=== PATIENT | female | born 1935 | race Caucasian/White ===

== ENCOUNTER 2017-05-10 10:37 | Emergency (ER) | payer BC, MEDICARE ==
[~2017-05-10] VITALS: Ht 167.6 cm; Wt 73.5 kg
[~2017-05-10 10:37] MED LIST: ALEN70TA3 PO; ASPI-482 PO; CALC600T4 PO; FISH1CAP PO; HYDR12.53 PO; LEVO100T5 PO; LOSA1TAB18 PO; LOVA40TA2 PO; METO100T11 PO; MULT-208 PO; SULF1TAB24 PO
[2017-05-10 11:06] VITALS: BP 176/77
--- NOTE | 2017-05-10 12:18 | RAD ---
CT of the head without contrast, 05/20/2017: History: Fall, head injury Comparison is made to a study from 03/19/2005. The ventricles are within normal limits in size for the patient's age. There is no shift of the midline structures. There is no evidence of acute intracranial hemorrhage or mass effect. There is minimal mucosal thickening or fluid in the right maxillary sinus. IMPRESSION: No acute intracranial abnormality is detected. PQRS Compliance Statement: One or more of the following individualized dose reduction techniques were utilized for this examination: 1. Automated exposure control 2. Adjustment of the mA and/or kV according to patient size 3. Use of iterative reconstruction technique
--- NOTE | 2017-05-10 12:20 | RAD ---
Left wrist, 3 views, 05/10/2017: History: Fall, injury, pain The bony structures are demineralized. There is an impacted fracture of the distal left radius. There is mild dorsal angulation of the major distal fracture fragments. The fracture is slightly comminuted. A fracture line appears to involve its articular surface. A small ulnar styloid fracture is also noted. No carpal bone fracture or dislocation is evident. IMPRESSION: Colles' type fracture of the left wrist.
[2017-05-10] MEDS ORDERED: HYDR-971 PO (12:53)
--- NOTE | 2017-05-10 12:53 | PHYS DOC ---
Past Medical History Past Medical History: Cancer, Hypertension, Hypothyroid Past Surgical History: Coronary Bypass Surgery, Tonsillectomy Additional Past Surgical Histo: THROID REMOVAL, LUMPECTOMY/LYMPH NODES RIGHT SIDE REMOVAL , BREAST BX, Alcohol Use: None Drug Use: None Adult General Chief Complaint Chief Complaint: MECHANICAL FALL HPI HPI Patient is a 82 year old female who presents with complaint of left wrist pain after suffering a fall prior to arrival. Patient states that she is walking on a sidewalk and tripped, falling onto her left hand. Patient also states that she bumped the left side of her head as a result of the fall. Patient states that she felt woozy but did not lose consciousness. Patient states that she is having 8 out of 10 pain in her left wrist. Patient also has mild discomfort along her left chest wall which she states is likely due to the fall. Patient denies any difficulty with breathing. Patient is on daily aspirin denies being on any other blood thinners. Patient has not taken any medications to help with her symptoms at this time. Patient states that her pain worsens with attempts to move it the rest. Review of Systems Review of Systems Constitutional: Denies fever or chills [] Eyes: Denies change in visual acuity, redness, or eye pain [] HENT: Denies nasal congestion or sore throat [] Respiratory: Denies cough or shortness of breath [] Cardiovascular: Denies chest pain or edema [] GI: Denies abdominal pain, nausea, vomiting, bloody stools or diarrhea [] : Denies dysuria or hematuria [] Musculoskeletal: Left wrist pain [] Integument: Denies rash or skin lesions [] Neurologic: Head injury, denies focal weakness or sensory changes [] Allergies Allergies Allergies Coded Allergies Type Severity Reaction Last Updated Verified No Known Drug Allergies 09/19/15 No Physical Exam Physical Exam Constitutional: Alert, afebrile, no acute distress. [] HENT: Normocephalic, atraumatic, bilateral external ears normal, oropharynx moist, no oral exudates, nose normal. [] Eyes: PERRLA, EOMI, conjunctiva normal, no discharge. [] Neck: Normal range of motion, no tenderness, supple, no stridor. [] Cardiovascular:Heart rate regular rhythm, no murmur [] Lungs & Thorax: Bilateral breath sounds clear to auscultation [] Abdomen: Bowel sounds normal, soft, no tenderness, no masses, no pulsatile masses. [] Skin: Warm, dry, no erythema, no rash. [] Back: No tenderness, no CVA tenderness. [] Extremities: Moderate soft tissue swelling with mild deformity to left wrist, tenderness palpation over dorsum distal radius and ulna bones, range of motion not tested secondary to pain, capillary refill less than 2 seconds in all 5 digits of left hand. [] Neurologic: Alert and oriented X 3, normal motor function, normal sensory function, no focal deficits noted. [] Current Patient Data Vital Signs Vital Signs Date Time Temp Pulse Resp B/P (MAP) Pulse Ox O2 Delivery O2 Flow Rate FiO2 05/10/17 11:06 98.2 72 18 176/77 (110) 96 Room Air 98.2 EKG EKG Not performed [] Radiology/Procedures Radiology/Procedures [address] [address] IMAGING REPORT Signed PATIENT: TARIK COLEMAN ACCOUNT: [id number] : 1935 LOCATION: ER AGE: 82 SEX: F EXAM STATUS: REG ER ORD. PHYSICIAN: ARUNA CONTRERAS MD REASON: fall, left wrist pain PROCEDURE: WRIST 3V LEFT Left wrist, 3 views, 05/10/2017: History: Fall, injury, pain The bony structures are demineralized. There is an impacted fracture of the distal left radius. There is mild dorsal angulation of the major distal fracture fragments. The fracture is slightly comminuted. A fracture line appears to involve its articular surface. A small ulnar styloid fracture is also noted. No carpal bone fracture or dislocation is evident. IMPRESSION: Colles' type fracture of the left wrist. DICTATED and SIGNED BY: FREDY BUITRAGO MD DATE: 05/10/17 1216 CC: ARUNA CONTRERAS MD; NESTOR CARCAMO MD ~ [place] [id number] [place] [address] IMAGING REPORT Signed PATIENT: TARIK COLEMAN ACCOUNT: [id number] : 1935 LOCATION: ER AGE: 82 SEX: F EXAM STATUS: REG ER ORD. PHYSICIAN: ARUNA CONTRERAS MD REASON: fall, head injury PROCEDURE: CT HEAD WO CONTRAST CT of the head without contrast, 05/20/2017: History: Fall, head injury Comparison is made to a study from 03/19/2005. The ventricles are within normal limits in size for the patient's age. There is no shift of the midline structures. There is no evidence of acute intracranial hemorrhage or mass effect. There is minimal mucosal thickening or fluid in the right maxillary sinus. IMPRESSION: No acute intracranial abnormality is detected. PQRS Compliance Statement: One or more of the following individualized dose reduction techniques were utilized for this examination: 1. Automated exposure control 2. Adjustment of the mA and/or kV according to patient size 3. Use of iterative reconstruction technique DICTATED and SIGNED BY: FREDY BUITRAGO MD DATE: 05/10/173 CC: ARUNA CONTRERAS MD; NESTOR CARCAMO MD ~ [] Course & Med Decision Making Course & Med Decision Making Pertinent Labs and Imaging studies reviewed. (See chart for details) The patient was offered pain medication in the emergency department but declined. Patient's x-rays are consistent with Colles' type fracture. The patient's fracture was splinted with a sugar tong splint by the emergency department geophysical data technician. My evaluation post splint application showed normal capillary refill in all 5 digits and normal sensation. Patient's head CT negative for acute intracranial injury. Patient will be referred to Dr. Borrego for follow-up in 5-7 days for reevaluation of her left wrist fracture. Advised return emergency department for any worsening symptoms. Patient voiced understanding and in agreement with treatment plan. Dragon Disclaimer Dragon Disclaimer This electronic medical record was generated, in whole or in part, using a voice recognition dictation system. Departure Departure Impression: Primary Impression: Colles' fracture Additional Impression: Closed head injury Disposition: 01 HOME, SELF-CARE Condition: IMPROVED Referrals: NESTOR CARCAMO MD (PCP) RODOLFO BORREGO MD Patient Instructions: Colles Fracture, Head Injury, Adult Additional Instructions: Follow-up with Dr. Borrego in the next 5-7 days. Return to the emergency department for any worsening symptoms. Scripts Hydrocodone/Apap 5-325 (NORCO 5-325 TABLET) 1 Each Tablet 1-2 TAB PO Q4-6HRS Y for PAIN, #30 TAB Prov: ARUNA CONTRERAS MD 05/10/17 Problem Qualifiers Primary Impression: Colles' fracture Encounter type: initial encounter Fracture type: closed Laterality: left Qualified Codes: S52.532A - Colles' fracture of left radius, initial encounter for closed fracture Additional Impression: Closed head injury Encounter type: initial encounter Qualified Codes: S09.90XA - Unspecified injury of head, initial encounter ARUNA CONTRERAS MD May 10, 2017 12:53
== END 2017-05-10 13:22 | disposition home or self-care (01) ==
LOC: ER 10:37
DX: S52.532A Colles' fracture of left radius, initial encounter for closed fracture (principal); S09.90XA Unspecified injury of head, initial encounter; E03.9 Hypothyroidism, unspecified; I10 Essential (primary) hypertension; E89.0 Postprocedural hypothyroidism; Z95.1 Presence of aortocoronary bypass graft; Z90.89 Acquired absence of other organs; W01.0XXA Fall on same level from slipping, tripping and stumbling without subsequent striking against object, initial encounter; Y93.01 Activity, walking, marching and hiking; Y99.8 Other external cause status; Y92.89 Other specified places as the place of occurrence of the external cause
CPT/HCPCS: 29125; 70450; 73110; 99284-25

== ENCOUNTER 2019-01-04 09:27 | Emergency (ER) | payer BC ==
[~2019-01-04] VITALS: Ht 165.1 cm; Wt 70.3 kg
[~2019-01-04 09:27] MED LIST changes: +AMLO5TAB10 PO; +CALC-77 PO; +CHOL500021 PO; +CIPR250T30 PO; +HYDR-3164 PO; -HYDR12.53 PO; +HYDR12.575 PO; +LEVO88TA4 PO; -LOSA1TAB18 PO; +LOSA1TAB22 PO; +LOSA1TAB25 PO; +METO-247 PO; -METO100T11 PO
--- NOTE | 2019-01-04 09:54 | EKG ---
[facility] [address] [place] [address] Test Date: 2019-01-04 Test Time: 09:36:54 Pat Name: TARIK COLEMAN Department: Room: Gender: F Media Aid: : 1935 Requested By: JENNY TELLEZ Order Number: [id number] Reading MD: Wei Gambino MD Measurements Intervals [place] Rate: 75 P: -10 WV: 220 QRS: -18 QRSD: 112 T: 31 QT: 398 QTc: 452 Interpretive Statements SINUS RHYTHM PROLONGED WV INTERVAL Electronically Signed On 01-05-2019 10:17:30 [employer] by Wei Gambino MD
[2019-01-04 10:16] LABS: BASO # 0.1 x10^3/uL (0.0-0.2); BASO % 1 % (0-3); EOS # 0.3 x10^3/uL (0.0-0.7); EOS % 3 % (0-3); HEMATOCRIT 40.1 % (36.0-47.0); HEMOGLOBIN 13.2 g/dL (12.0-15.5); LYMPH # 1.4 x10^3/uL (1.0-4.8); LYMPH % 12 % (24-48); MEAN CORPUSCULAR HEMOGLOBIN 30 pg (25-35); MEAN CORPUSCULAR HGB CONC 33 g/dL (31-37); MEAN CORPUSCULAR VOLUME 92 fL (79-100); MONO # 0.7 x10^3/uL (0.0-1.1); MONO % 7 % (0-9); NEUT # 8.7 x10^3uL (1.8-7.7); NEUT % 78 % (31-73); PLATELET COUNT 214 x10^3/uL (140-400); RED BLOOD COUNT 4.38 x10^6/uL (3.50-5.40); RED CELL DISTRIBUTION WIDTH 13.4 % (11.5-14.5); WHITE BLOOD COUNT 11.1 x10^3/uL (4.0-11.0)
--- NOTE | 2019-01-04 10:17 | PHYS DOC ---
Past Medical History Past Medical History: Heart Disease Additional Past Medical Histor: HIGH CHOLESTEROL Past Surgical History: Cancer Surgery, Coronary Bypass Surgery Additional Past Surgical Histo: RT BREAST LUMPECTOMY, THYROID REMOVED Additional Information: nonsmoker Alcohol Use: None Drug Use: None Adult General Chief Complaint Chief Complaint: Palpitations HPI HPI Patient is an 83 YO F that is presenting with heart palpitations that began on . She was being treated for a UTI with Bactrim when she developed nausea and vomiting. She stopped the Bactrim and switched to nitrofurantoin, she doesn't have any of the urinary symptoms anymore. She reports nausea, vomiting, mild dizziness, and overall lethargy. She denies abdominal pain, chest pain, fever, chills, and trauma. She reports that the palpitations are episodic and improve with rest. She has a past medical history of hypertension, hypercholesterolemia, and she has had a CABG. She reports that she has not had any of these episodes since her CABG. Review of Systems Review of Systems Constitutional: Denies fever or chills [] Eyes: Denies change in visual acuity, redness, or eye pain [] HENT: Denies nasal congestion or sore throat [] Respiratory: Reports cough, denies shortness of breath [] Cardiovascular: Reports palpitations, denies chest pain [] GI: Denies abdominal pain, nausea, vomiting, or diarrhea [] : Denies dysuria or hematuria [] Integument: Denies rash or skin lesions [] Neurologic: Denies headache, focal weakness or sensory changes [] Complete systems were reviewed and found to be within normal limits, except as documented in this note. Current Medications Current Medications Current Medications Medications (Trade) Dose Ordered Sig/John Start Time Stop Time Status Last Admin Dose Admin Iohexol (Omnipaque 350 Mg/ml) 75 ml 1X ONCE 01/04/19 11:45 01/04/19 11:47 DC Ondansetron HCl (Zofran) 4 mg 1X ONCE 01/04/19 10:30 01/04/19 10:31 DC 01/04/19 11:23 4 MG Sodium Chloride 1,000 ml @ 1,000 mls/hr 1X ONCE 01/04/19 11:30 01/04/19 12:29 DC Allergies Allergies Allergies Coded Allergies Type Severity Reaction Last Updated Verified No Known Drug Allergies 09/19/15 No Physical Exam Physical Exam Constitutional: Well developed, well nourished, no acute distress, non-toxic appearance. [] HENT: Normocephalic, atraumatic, nose normal. [] Eyes: Conjunctiva normal, no discharge. [] Neck: Normal range of motion, no tenderness, supple, no stridor. [] Cardiovascular: Heart rate regular rhythm, no murmur [] Lungs & Thorax: Bilateral breath sounds clear to auscultation [] Abdomen: Soft, no tenderness. [] Skin: Warm, dry, no erythema, no rash. [] Extremities: No tenderness, 1+ BL LE pitting edema. [] Neurologic: Alert and oriented X 3, no focal deficits noted. [] Psychologic: Affect normal, judgement normal, mood normal. [] Current Patient Data Vital Signs Vital Signs Date Time Temp Pulse Resp B/P (MAP) Pulse Ox O2 Delivery O2 Flow Rate FiO2 01/04/19 11:15 66 18 141/63 (89) 96 Room Air 01/04/19 09:38 98.3 98.3 Lab Values Laboratory Tests Test 01/04/19 09:55 01/04/19 10:49 White Blood Count 11.1 x10^3/uL (4.0-11.0) H Red Blood Count 4.38 x10^6/uL (3.50-5.40) Hemoglobin 13.2 g/dL (12.0-15.5) Hematocrit 40.1 % (36.0-47.0) Mean Corpuscular Volume 92 fL (79-100) Mean Corpuscular Hemoglobin 30 pg (25-35) Mean Corpuscular Hemoglobin Concent 33 g/dL (31-37) Red Cell Distribution Width 13.4 % (11.5-14.5) Platelet Count 214 x10^3/uL (140-400) Neutrophils (%) (Auto) 78 % (31-73) H Lymphocytes (%) (Auto) 12 % (24-48) L Monocytes (%) (Auto) 7 % (0-9) Eosinophils (%) (Auto) 3 % (0-3) Basophils (%) (Auto) 1 % (0-3) Neutrophils # (Auto) 8.7 x10^3uL (1.8-7.7) H Lymphocytes # (Auto) 1.4 x10^3/uL (1.0-4.8) Monocytes # (Auto) 0.7 x10^3/uL (0.0-1.1) Eosinophils # (Auto) 0.3 x10^3/uL (0.0-0.7) Basophils # (Auto) 0.1 x10^3/uL (0.0-0.2) D-Dimer (Katarina) 0.73 ug/mlFEU (0.00-0.50) H Sodium Level 139 mmol/L (136-145) Potassium Level 4.0 mmol/L (3.5-5.1) Chloride Level 100 mmol/L (98-107) Carbon Dioxide Level 26 mmol/L (21-32) Anion Gap 13 (6-14) Blood Urea Nitrogen 22 mg/dL (7-20) H Creatinine 1.3 mg/dL (0.6-1.0) H Estimated GFR (Cockcroft-Gault) 38.9 BUN/Creatinine Ratio 17 (6-20) Glucose Level 152 mg/dL (70-99) H Calcium Level 9.1 mg/dL (8.5-10.1) Magnesium Level 2.2 mg/dL (1.8-2.4) Total Bilirubin 0.7 mg/dL (0.2-1.0) Aspartate Amino Transferase (AST) 23 U/L (15-37) Alanine Aminotransferase (ALT) 32 U/L (14-59) Alkaline Phosphatase 49 U/L (46-116) Creatine Kinase 117 U/L (26-192) Creatine Kinase MB (Mass) 1.6 ng/mL (0.0-3.6) Creatine Kinase MB Relative Index 1.4 % (0-4) Troponin I Quantitative < 0.017 ng/mL (0.000-0.055) UU-Kqv-U-Type Natriuretic Peptide 278 pg/mL (0-449) Total Protein 7.5 g/dL (6.4-8.2) Albumin 4.2 g/dL (3.4-5.0) Albumin/Globulin Ratio 1.3 (1.0-1.7) Lipase 125 U/L (73-393) Thyroid Stimulating Hormone (TSH) 1.941 uIU/mL (0.358-3.74) Free Thyroxine 1.31 ng/dL (0.76-1.46) Free Triiodothyronine (T3) pg/mL 1.60 pg/mL (2.18-3.98) L Urine Collection Type Unknown Urine Color Yellow Urine Clarity Clear Urine pH 6.0 Urine Specific [place] 1.015 Urine Protein Negative mg/dL (NEG-TRACE) Urine Glucose (UA) Negative mg/dL (NEG) Urine Ketones (Stick) Negative mg/dL (NEG) Urine Blood Negative (NEG) Urine Nitrite Negative (NEG) Urine Bilirubin Negative (NEG) Urine Urobilinogen Dipstick 0.2 mg/dL (0.2 mg/dL) Urine Leukocyte Esterase Negative (NEG) Urine RBC 1-2 /HPF (0-2) Urine WBC Occ /HPF (0-4) Urine Squamous Epithelial Cells Occ /LPF Urine Bacteria 0 /HPF (0-FEW) Urine Mucus Slight /LPF Laboratory Tests 01/04/19 09:55 Laboratory Tests 01/04/19 09:55 EKG EKG @0936 Sinus rhythm at 76 BPM, prolonged WV interval at 220ms, left axis deviation, no ST elevation Radiology/Procedures Radiology/Procedures PROCEDURE: CT ABD PELV W/ IV CONTRST ONLY PQRS Compliance Statement: One or more of the following individualized dose reduction techniques were utilized for this examination: 1. Automated exposure control 2. Adjustment of the mA and/or kV according to patient size 3. Use of iterative reconstruction technique CT angiography chest with contrast 01/04/2019 12:[address] Abdomen Pelvis with contrast INDICATION: Chest pain, nausea and vomiting. Elevated d-dimer. COMPARISON: None available TECHNIQUE: Axial CT images of the chest, abdomen and pelvis were obtained after the intravenous administration of 75 mL Omnipaque 350. Coronal and sagittal reformats are provided. Maximum intensity projection images of the thoracic vasculature are provided. FINDINGS: CHEST: The thyroid gland is normal in appearance. There are no pathologically enlarged axillary, mediastinal or hilar lymph nodes. The heart size is enlarged. Thoracic aorta is normal in course and caliber. Median sternotomy changes are present. Mitral annular calcifications are present. Three-vessel coronary artery vascular calcifications are present. There is adequate opacification of the pulmonary arterial system. There there are no filling defects within the pulmonary arterial system to suggest acute or chronic pulmonary embolus. Diffuse subpleural interstitial changes are present. There is traction bronchiectasis involving the right middle lobe. No suspicious solid noncalcified pulmonary nodules are identified. There are no pleural effusions. No pulmonary vascular congestion or pneumothorax. Abdomen/pelvis: Hypoattenuating hepatic lesions measuring up to 4.6 cm most favors simple cysts or hemangiomas. Calcific examination within the spleen likely represent sequela prior granulomatous exposure. Subcentimeter hypodensity in the spleen measures 3 mm and favors benign etiology such as a hemangioma, lymphangioma or epithelial cyst. There is a fluid attenuation lesion in the tail the pancreas measuring 8 mm to represent a simple cyst. Mild pancreatic atrophy is identified. Adrenal glands are normal in appearance. Chest gallstones are identified at the gallbladder. Abdominal aorta is normal in course and caliber. Dense calcified atheromatous plaque is identified at the origin of the celiac axis resulting in severe stenosis and poststenotic dilatation measuring up to 8 mm. There is calcified atheromatous plaque at the origin of the superior mesenteric artery resulting in at least mild stenosis. There are no pathologically enlarged lymph nodes in abdomen and pelvis. There is no free fluid or free intraperitoneal air. The kidneys enhance symmetrically. There is no suspicious renal mass. There is no hydronephrosis. There are no suspected calculi within the kidneys, ureters or urinary bladder. There is moderate diverticulosis. No definite inflammatory changes are identified. Normal appendix is visualized. No evidence for bowel obstruction or inflammation. Urinary bladder is within normal limits given degree of distention. Uterus is normal in appearance. There is a cystic right adnexal mass measuring 4.7 x 3.6 cm. There is grade 1 anterolisthesis of L5 on S1. There is lumbarization of the first sacral segment. IMPRESSION: 1. No evidence for acute pulmonary embolus. Chronic interstitial changes are identified, most prominent right middle lobe associated traction bronchiectasis. Consideration may be given for early interstitial lung disease which does not conform to a specific pattern. 2. Mild cardiomegaly with mitral annular calcifications. CABG changes are visualized. 3. Simple hepatic cysts. 3 mm hypodensity within the spleen favors benign etiology. 4. 8 mm cyst in the tail the pancreas may represent an epithelial cyst versus side branch 5:00 PM). One year follow-up MRCP may be of benefit. 5. Moderate diverticulosis. No adjacent inflammatory changes are present. 6. Cholelithiasis. Electronically signed by: Kary Kirby MD (01/04/2019 12:55 PM) [facility] Course & Med Decision Making Course & Med Decision Making Pertinent Labs and Imaging studies reviewed. (See chart for details) Patient is an 83 YO F that is presenting with heart palpitations, nausea, and vomiting for a couple days. Labs obtained and posted to chart. WC of 11.1, Cr of 1.3. Initial troponin WNL. EKG WNL, no ST elevation. D-dimer elevated. CT angio chest and CT abdomen/pelvis shows no evidence for acute pulmonary embolus , simple hepatic cysts, and 8 mm cyst in the tail the pancreas. UA clear. Discussed the findings of the CT with the patient and recommended follow-up with PCP to address the cysts in the liver, spleen, and pancreas. Nausea addressed. Dragon Disclaimer Dragon Disclaimer This electronic medical record was generated, in whole or in part, using a voice recognition dictation system. Departure Departure Impression: Primary Impression: Palpitations Additional Impression: Abnormal finding on radiology exam Disposition: HOME, SELF-CARE Condition: STABLE Referrals: Rebecca CARCAMO MD (PCP) Patient Instructions: Incidental Abdominal Radiological Finding, Palpitations, Mmir-jf-True Scripts Ondansetron (ONDANSETRON ODT) 4 Mg Tab.rapdis 1 TAB PO PRN Q6-8HRS for VOMITING, #16 TAB Prov: GUI CAREY DO 01/04/19 Problem Qualifiers GUI CAREY DO Jan 04, 2019 10:17
[2019-01-04 10:18] LABS: CALCIUM 9.1 mg/dL (8.5-10.1); CREATININE 1.3 mg/dL (0.6-1.0); GFR 38.9
[2019-01-04 10:23] LABS: ALBUMIN 4.2 g/dL (3.4-5.0); ALBUMIN/GLOBULIN RATIO 1.3 (1.0-1.7); MAGNESIUM 2.2 mg/dL (1.8-2.4); TOTAL BILIRUBIN 0.7 mg/dL (0.2-1.0); TOTAL PROTEIN 7.5 g/dL (6.4-8.2)
[2019-01-04] MEDS ORDERED: ONDANSETRON PF 4 MG/2 ML VIAL. IV ONE (10:30)
[2019-01-04] MEDS ORDERED: IV NORMAL SALINE 1000ML BAG 1,000 ML IV ONE ×2 (10:30→11:30)
[2019-01-04 11:04] LABS: FREE T4 1.31 ng/dL (0.76-1.46); THYROID STIM HORMONE (TSH) 1.941 uIU/mL (0.358-3.74)
[2019-01-04 11:14] LABS: BILIRUBIN,URINE NEGATIVE (NEG); CLARITY,URINE CLEAR; COLOR,URINE YELLOW; NITRITE,URINE NEGATIVE (NEG); PROTEIN,URINE NEGATIVE (NEG-TRACE); UROBILINOGEN,URINE 0.2 mg/dL (0.2 mg/dL)
[2019-01-04 11:26] LABS: BACTERIA,URINE 0 /HPF (0-FEW); SQUAMOUS EPITHELIAL CELL,UR OCC /LPF; WBC,URINE OCC /HPF (0-4)
[2019-01-04] MEDS ORDERED: IOHEXOL 350 MG/ML 100 ML VIAL. IV ONE (11:45)
--- NOTE | 2019-01-04 12:59 | RAD ---
PQRS Compliance Statement: One or more of the following individualized dose reduction techniques were utilized for this examination: 1. Automated exposure control 2. Adjustment of the mA and/or kV according to patient size 3. Use of iterative reconstruction technique CT angiography chest with contrast 01/04/2019 12:[address] Abdomen Pelvis with contrast INDICATION: Chest pain, nausea and vomiting. Elevated d-dimer. COMPARISON: None available TECHNIQUE: Axial CT images of the chest, abdomen and pelvis were obtained after the intravenous administration of 75 mL Omnipaque 350. Coronal and sagittal reformats are provided. Maximum intensity projection images of the thoracic vasculature are provided. FINDINGS: CHEST: The thyroid gland is normal in appearance. There are no pathologically enlarged axillary, mediastinal or hilar lymph nodes. The heart size is enlarged. Thoracic aorta is normal in course and caliber. Median sternotomy changes are present. Mitral annular calcifications are present. Three-vessel coronary artery vascular calcifications are present. There is adequate opacification of the pulmonary arterial system. There there are no filling defects within the pulmonary arterial system to suggest acute or chronic pulmonary embolus. Diffuse subpleural interstitial changes are present. There is traction bronchiectasis involving the right middle lobe. No suspicious solid noncalcified pulmonary nodules are identified. There are no pleural effusions. No pulmonary vascular congestion or pneumothorax. Abdomen/pelvis: Hypoattenuating hepatic lesions measuring up to 4.6 cm most favors simple cysts or hemangiomas. Calcific examination within the spleen likely represent sequela prior granulomatous exposure. Subcentimeter hypodensity in the spleen measures 3 mm and favors benign etiology such as a hemangioma, lymphangioma or epithelial cyst. There is a fluid attenuation lesion in the tail the pancreas measuring 8 mm to represent a simple cyst. Mild pancreatic atrophy is identified. Adrenal glands are normal in appearance. Chest gallstones are identified at the gallbladder. Abdominal aorta is normal in course and caliber. Dense calcified atheromatous plaque is identified at the origin of the celiac axis resulting in severe stenosis and poststenotic dilatation measuring up to 8 mm. There is calcified atheromatous plaque at the origin of the superior mesenteric artery resulting in at least mild stenosis. There are no pathologically enlarged lymph nodes in abdomen and pelvis. There is no free fluid or free intraperitoneal air. The kidneys enhance symmetrically. There is no suspicious renal mass. There is no hydronephrosis. There are no suspected calculi within the kidneys, ureters or urinary bladder. There is moderate diverticulosis. No definite inflammatory changes are identified. Normal appendix is visualized. No evidence for bowel obstruction or inflammation. Urinary bladder is within normal limits given degree of distention. Uterus is normal in appearance. There is a cystic right adnexal mass measuring 4.7 x 3.6 cm. There is grade 1 anterolisthesis of L5 on S1. There is lumbarization of the first sacral segment. IMPRESSION: 1. No evidence for acute pulmonary embolus. Chronic interstitial changes are identified, most prominent right middle lobe associated traction bronchiectasis. Consideration may be given for early interstitial lung disease which does not conform to a specific pattern. 2. Mild cardiomegaly with mitral annular calcifications. CABG changes are visualized. 3. Simple hepatic cysts. 3 mm hypodensity within the spleen favors benign etiology. 4. 8 mm cyst in the tail the pancreas may represent an epithelial cyst versus side branch 5:00 PM). One year follow-up MRCP may be of benefit. 5. Moderate diverticulosis. No adjacent inflammatory changes are present. 6. Cholelithiasis. Electronically signed by: Kary Kirby MD (01/04/2019 12:55 PM) [facility]
[2019-01-04 13:08] VITALS: BP 156/66
[2019-01-04] MEDS ORDERED: ONDA4TAB12 PO (13:30)
== END 2019-01-04 14:01 | disposition home or self-care (01) ==
LOC: ER 09:27
DX: R00.2 Palpitations (principal); R93.89 Abnormal findings on diagnostic imaging of other specified body structures; R11.2 Nausea with vomiting, unspecified; R42 Dizziness and giddiness; R53.83 Other fatigue; I11.9 Hypertensive heart disease without heart failure; E78.00 Pure hypercholesterolemia, unspecified; Z95.1 Presence of aortocoronary bypass graft
CPT/HCPCS: 36415; 71275; 74177; 80053; 81001; 82553; 83690; 83735; 83880; 84439; 84443; 84481; 84484; 85025; 85379; 93005; 96361; 96374; 99284; J2405; J7030; Q9967

== ENCOUNTER → 2020-10-14 | Outpatient (CLI) | payer BC ==
[2020-04-12 11:00] VITALS: BP 103/41
[~2020-10-14] MED LIST changes: +AMLO-186 PO; -AMLO5TAB10 PO; -CALC600T4 PO; +CALC600T6 PO; +HYDR-2761 PO; +ONDA4TAB12 PO
--- NOTE | 2020-10-14 17:47 | KCIC ---
Left foot 3 views INDICATION: Left foot pain COMPARISON: None. FINDINGS: Hallux valgus deformity and hammertoe deformity to the second digits are apparent. Bones are demineralized and there is a horizontal lucency through the proximal shaft of the second metatarsal, suspicious for nondisplaced hairline fracture. No significant calcification is seen. No acute osseous abnormalities otherwise noted. Degenerative changes at the MTP joints of the first through third digits are present. Soft tissues are unremarkable. IMPRESSION: Hairline fracture through the proximal shaft of the second metatarsal without displacement. Otherwise no acute osseous abnormalities identified on x-ray. Electronically signed by: Rachna Gutierrez MD (10/14/2020 5:44 PM) [id number]
== END ==
LOC: KCIC 11:08
PROVIDERS: ATTEND Family Medicine
DX: S92.325A Nondisplaced fracture of second metatarsal bone, left foot, initial encounter for closed fracture (principal); M19.072 Primary osteoarthritis, left ankle and foot; X58.XXXA Exposure to other specified factors, initial encounter; Y93.89 Activity, other specified; Y92.89 Other specified places as the place of occurrence of the external cause; Y99.8 Other external cause status
CPT/HCPCS: 73630

== ENCOUNTER → 2020-11-01 | Outpatient (CLI) | payer BC ==
[2020-04-12 11:00] VITALS: BP 103/41
--- NOTE | 2020-11-02 15:03 | RAD ---
DATE: 11/01/2020 8:18 AM EXAM: MAMMO JUAN SCREENING BILATERAL HISTORY: Screening COMPARISON: 10/28/2018 Bilateral CC and MLO views of the breasts were performed. Bilateral breast tomosynthesis was performed in CC and MLO projections. This study was interpreted with the benefit of Computerized Aided Detection (CAD). FINDINGS: Breast Density: SCATTERED The breast parenchyma shows scattered fibroglandular densities. Breast parenchyma level B No suspicious masses, microcalcifications or architectural distortion is present to suggest malignancy in either breast. The visualized axillae are unremarkable. IMPRESSION: No mammographic evidence of malignancy. BI-RADS CATEGORY: 1 NEGATIVE RECOMMENDED FOLLOW-UP: 12M 12 MONTH FOLLOW-UP Annual screening mammography is recommended, unless clinically indicated sooner based on symptoms or change in physical exam. PQRS compliance statement: Patient information was entered into a reminder system with a target due date for the next mammogram. Mammography is a sensitive method for finding small breast cancers, but it does not detect them all and is not a substitute for careful clinical examination. A negative mammogram does not negate a clinically suspicious finding and should not result in delay in biopsying a clinically suspicious abnormality. "Our facility is accredited by the [employer] Mammography Program."
== END ==
LOC: MAMMO 08:14
PROVIDERS: ATTEND Family Medicine
DX: Z12.31 Encounter for screening mammogram for malignant neoplasm of breast (principal)
CPT/HCPCS: 77063; 77067

== ENCOUNTER 2021-05-16 12:32 | Emergency (ER) | payer BC ==
[~2021-05-16] VITALS: Ht 160 cm; Wt 70.4 kg
[~2021-05-16 12:32] MED LIST changes: -CALC600T6 PO; +CALC600T60 PO
[2021-05-16] MEDS ORDERED: LIDOCAINE 2%/EPI 1:100,000 20 ML VIAL. INJ ONE (14:15)
[2021-05-16] MEDS ORDERED: DIPH,PERTUSS(ACELL),TET VAC/PF 0.5 ML SYRINGE. VAX IM ONE (14:15)
--- NOTE | 2021-05-16 14:18 | RAD ---
CT CERVICAL SPINE WO, CT HEAD AND MAXILLOFACIAL WO History: Reason: fall with head injury / Spl. Instructions: / History: Comparison: May 10, 2017 Technique: Noncontrast CT imaging was performed of the head, maxillofacial and cervical spine. Hess l and sagittal reconstructions were performed. Exposure: One or more of the following individualized dose reduction techniques were utilized for thi s examination: 1. Automated exposure control 2. Adjustment of the mA and/or kV according to patient size 3. Use of iterative reconstruction technique. Findings: Head CT: No intracranial hemorrhage. No mass effect. No hydrocephalus. Mild brain parenchymal volume loss. Mild foci of decreased attenuation within the hemispheric white m atter, most often due to chronic microvascular ischemia. Maxillofacial CT: No acute maxillofacial fracture. Maxillary cyst measures 1.0 x 1.0 cm. Edentulous. Orbits are unremarkable. Paranasal sinuses and mastoid air cells are clear. No acute calvarial fractu re. Cervical spine CT: Grade 1 anterolisthesis C4 on C5. Normal vertebral body height. No acute fracture. Moderate degenerative disc changes most prominent C5-C6 and C6-C7. Left. Right facet arthropathy. Lef t C2-C3 facet fusion. Soft tissues are unremarkable. Impression: Head CT: 1. No acute intracranial abnormality. Maxillofacial CT: 1. No acute maxillofacial fracture. Cervical spine CT: 1. No acute fracture or subluxation of the cervical spine. 2. Moderate multilevel cervical spondylosis. Electronically signed by: Anuj Hilton DO (05/16/2021 2:15 PM) [id number]
--- NOTE | 2021-05-16 15:23 | ED.ADGEN ---
Past Medical History Past Medical History: High Cholesterol, Heart Disease, Hypertension Additional Past Medical Histor: HIGH CHOLESTEROL Past Surgical History: Cancer Surgery, Coronary Bypass Surgery Additional Past Surgical Histo: RT BREAST LUMPECTOMY, THYROID REMOVED, heart bypass Smoking Status: Never Smoker Alcohol Use: None Drug Use: None General Adult EDM: Chief Complaint: MECHANICAL FALL HPI: HPI: Patient is a 86 year old female who presents emergency department with complaints of a laceration and swelling to her lower lip. Patient states she had gone outside to get the mail when she was coming back and she tripped and fell at approximately 0830. Patient reports that she fell her chin hit the ground, she denies any loss of consciousness, nausea, vomiting, vision changes, head/neck/back pain. She denies any chest pain, palpitations, dizziness, or syncope. Patient is unsure when her last tetanus shot was. She currently rates her pain a 3 out of 10 on the pain scale, she denies any alleviating or exacerbating factors. Review of Systems: Review of Systems: Complete ROS is negative unless otherwise noted in HPI. Current Medications: Current Medications Medications (Trade) Dose Ordered Sig/John Start Time Stop Time Status Last Admin Dose Admin Diphtheria/ Tetanus/Acell Pertussis (ADACEL TDap SYRINGE) 0.5 ml ONCE ONCE 05/16/21 14:15 05/16/21 14:16 DC 05/16/21 14:22 0.5 ML Lidocaine/ Epinephrine (LIDOCAINE 2%-EPI 1:100,000 multi-dose) 20 ml 1X ONCE 05/16/21 14:15 05/16/21 14:16 DC Allergies: Allergies: Allergies Coded Allergies Type Severity Reaction Last Updated Verified No Known Drug Allergies 09/19/15 No Physical Exam: PE: See Above Constitutional: Well developed, well nourished, no acute distress, non-toxic appearance. [] HENT: Normocephalic, bilateral external ears normal, nose normal. [] Eyes: PERRLA, EOMI, conjunctiva normal, no discharge. [] Neck: Normal range of motion, nontender, no obvious deformity, no stridor. [] Cardiovascular:Heart rate regular rhythm Lungs & Thorax: Respirations even and unlabored, no retractions, no respiratory distress Skin: Warm, dry, no erythema, no rash; 1 cm laceration along the vermilion border of the right lower lip, no visible foreign body, no active bleeding, extends through to the intraoral surface, no loose teeth [] Extremities: No cyanosis, ROM intact, no edema. [] Neurologic: Alert and oriented X 3, no focal deficits noted. [] Psychologic: Affect normal, judgement normal, mood normal. [] Current Patient Data: Vital Signs: Vital Signs Date Time Temp Pulse Resp B/P (MAP) Pulse Ox O2 Delivery O2 Flow Rate FiO2 05/16/21 16:10 76 135/76 (95) 96 Room Air 05/16/21 13:00 98.1 16 98.1 EKG: EKG: [] Heart Score: C/O Chest Pain: No Risk Scores: Score 0 - 3: 2.5% MACE over next 6 weeks - Discharge Home Score 4 - 6: 20.3% MACE over next 6 weeks - Admit for Clinical Observation Score 7 - 10: 72.7% MACE over next 6 weeks - Early Invasive Strategies Radiology/Procedures: Radiology/Procedures: PROCEDURE: CT HEAD AND MAXILLOFACIAL WO CT CERVICAL SPINE WO, CT HEAD AND MAXILLOFACIAL WO History: Reason: fall with head injury / Spl. Instructions: / History: Comparison: May 10, 2017 Technique: Noncontrast CT imaging was performed of the head, maxillofacial and cervical spine. Coronal and sagittal reconstructions were performed. Exposure: One or more of the following individualized dose reduction techniques were utilized for this examination: 1. Automated exposure control 2. Adjustment of the mA and/or kV according to patient size 3. Use of iterative reconstruction technique. Findings: Head CT: No intracranial hemorrhage. No mass effect. No hydrocephalus. Mild brain parenchymal volume loss. Mild foci of decreased attenuation within the hemispheric white matter, most often due to chronic microvascular ischemia. Maxillofacial CT: No acute maxillofacial fracture. Maxillary cyst measures 1.0 x 1.0 cm. Edentulous. Orbits are unremarkable. Paranasal sinuses and mastoid air cells are clear. No acute calvarial fracture. Cervical spine CT: Grade 1 anterolisthesis C4 on C5. Normal vertebral body height. No acute fracture. Moderate degenerative disc changes most prominent C5-C6 and C6-C7. Left. Right facet arthropathy. Left C2-C3 facet fusion. Soft tissues are unremarkable. Impression: Head CT: 1. No acute intracranial abnormality. Maxillofacial CT: 1. No acute maxillofacial fracture. Cervical spine CT: 1. No acute fracture or subluxation of the cervical spine. 2. Moderate multilevel cervical spondylosis.[] Laceration Repair by me: Anesthesia: 2% lidocaine with epinephrine locally Location: Right lower lip Tendon/Joint/Nerves: No injury Foreign body: None detected after copious irrigation and exploration with NS and chlorhexidine Technique: 3 simple Interrupted Sutures with 6-0 Prolene Complexity: No subcutaneous sutures/mucosal repair/edge excision Post Closure Length: 1.5 cm Patient's bleeding was easily controlled in the department and there is no indication of anemia. No evidence of compartment syndrome, neurologic injury, vascular injury, open joint, tendon laceration, or foreign body. Patient is appropriate for outpatient follow up. [] Course & Med Decision Making: Course & Med Decision Making Pertinent Labs and Imaging studies reviewed. (See chart for details) [] Dragon Disclaimer: Dragon Disclaimer: This electronic medical record was generated, in whole or in part, using a voice recognition dictation system. Departure Departure Impression: Primary Impression: Laceration of vermilion border of lower lip without complication Additional Impression: Need for Tdap vaccination Disposition: 01 HOME / SELF CARE / HOMELESS Condition: STABLE Referrals: Rebecca CARCAMO MD (PCP) Patient Instructions: Mouth Laceration, [id number] Additional Instructions: Fill prescription and use as directed. Tylenol or ibuprofen as needed for pain. Salt water swishes after meals and before bed. Apply ice to swollen area for 10- 15 minutes every 1-2 hours today then as needed. Follow a bland diet until inner laceration has completely healed. Follow up with your doctor in 3-7 days to have sutures removed. Return to the ER if symptoms worsen or fever develops. Scripts Cephalexin (CEPHALEXIN) 500 Mg Capsule 1 CAP PO BID for 7 Days, #14 CAP 0 Refills Prov: JENNY TELLEZ APRN 05/16/21 Attending Signature I have participated in the care of this patient and I have reviewed and agree with all pertinent clinical information above including history, exam, and recommendations. Problem Qualifiers Primary Impression: Laceration of vermilion border of lower lip without complication Encounter type: initial encounter Qualified Codes: S01.511A - Laceration without foreign body of lip, initial encounter JENNY TELLEZ APRN May 16, 2021 15:23 LUIS RG DO May 16, 2021 16:40
[2021-05-16] MEDS ORDERED: CEPH500C PO (16:09)
[2021-05-16 16:10] VITALS: BP 135/76
== END 2021-05-16 16:10 | disposition home or self-care (01) ==
LOC: ER 12:32
DX: S01.511A Laceration without foreign body of lip, initial encounter (principal); I11.9 Hypertensive heart disease without heart failure; E78.00 Pure hypercholesterolemia, unspecified; Z95.1 Presence of aortocoronary bypass graft; W01.0XXA Fall on same level from slipping, tripping and stumbling without subsequent striking against object, initial encounter; Y93.89 Activity, other specified; Y92.89 Other specified places as the place of occurrence of the external cause; Y99.8 Other external cause status
CPT/HCPCS: 12011; 70450; 70486; 72125; 90471; 90715; 99283; 99285-25